=== PATIENT | female | born 1995 | race Caucasian/White ===

== ENCOUNTER 2018-06-15 12:48 | Emergency (ER) | payer OTHER ==
[~2018-06-15] VITALS: Ht 167.6 cm; Wt 86.9 kg
[2018-06-15 12:51] VITALS: BP 103/64; PULSE 98; TEMP 36.7; O2SAT 98; Ht 167.6 cm; Wt 86.9 kg
[2018-06-15] MEDS ORDERED: IBUPROFEN 600 MG TAB PO STA (13:16)
--- NOTE | 2018-06-15 17:43 | EMERGENCY ROOM VISIT NOTE ---
ED Visit Note First contact with patient: 13:02 CHIEF COMPLAINT: Left shoulder injury HISTORY OF PRESENT ILLNESS: This 22-year-old white female patient complains of pain in her left shoulder that developed last night. 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 She was setting up a [employer] ride last night. By the end of the night her shoulder began hurting. It persisted into today. She reports here for evaluation. No prior history of left shoulder pain. No direct trauma. Pain is global. It is affecting her motion. Right-hand dominant. No numbness or tingling. The pain is moderate, constant and increases with motion of the arm. She denies any elbow or wrist pain. No treatment. REVIEW OF SYSTEM: HEENT: No dizziness, visual problems, hearing loss, or tinnitus. There is no difficulty swallowing and no oral lesions are present. PULMONARY: No cough, shortness of breath, sputum production or hemoptysis. CARDIOVASCULAR: No chest pain, palpitations, shortness of breath or peripheral edema. GASTROINTESTINAL: No diarrhea, constipation, nausea, vomiting, or abdominal pain. GENITOURINARY: No dysuria, frequency, urgency or nocturia. NEUROLOGIC: No weakness, muscle tenderness, epilepsy or history of neurological problems. MUSCULOSKELETAL: No history of joint tenderness/swelling. No history of arthritis or arthralgias. SKIN: No rashes or lesions. PSYCHIATRIC: No history of depression or mental illness. ENDOCRINE: No history of diabetes, thyroid disorders, or abnormal hair growth. PMH: The patient is healthy; there is no significant medical or surgical history. Family history: Noncontributory. SOCIAL HISTORY: Patient lives at home. Non-smoker, no excessive alcohol use. Allergies: NKDA Current medications: None PHYSICAL EXAM: Vital Signs: Reviewed nurse's notes. Afebrile. General: Well-developed, well-nourished, young white female, in no acute distress. Obvious discomfort. Sitting on a bed. Alert and oriented. Skin: Warm and dry with good turgor. No rashes or lesions. No ecchymosis or erythema. The patient is not diaphoretic. No abrasions. Musculoskeletal: The left shoulder is not swollen or deformed on inspection. The range of motion is limited in all directions because of the pain. Forward flexion of around 130 degrees, abduction of 110 degrees, but in the back reach to high lumbar, external rotation of around 30 degrees. There is no tenderness of the distal clavicle. Global discomfort with palpation over the subacromial space and posterior rotator cuff musculature. No pain with palpation over her biceps muscle belly or proximal tendon. Full range of motion of her elbow and wrist without discomfort. She has pain associated with Yarbrough testing, Neer impingement testing, and supraspinatus testing. No appreciable weakness. No pain with palpation over her cervical or thoracic spine. Neurologic: Gross sensation is intact across the left arm by soft touch. Peripheral pulses are 2+. DIAGNOSIS: Left shoulder rotator cuff tendinitis DISCHARGE INSTRUCTIONS & TREATMENT: Patient was educated regarding today's findings. Conservative care measures were discussed. Rest the arm in a sling until the pain subsides. Apply ice to the shoulder intermittently and frequently over the next 72 hours. Tylenol and Motrin every 6 hours if needed for pain. First dose of Motrin 600 mg was provided in the ED. gentle stretching daily. Avoid any heavy lifting. See your own doctor or an orthopedic surgeon for physical therapy referral if she does not seem to be improving in 4 - 5 days. Note was provided to be off work if they cannot provide modified duty in the sling. She was reassured that I do not suspect rotator cuff rupture or tear, fracture, or dislocation. Vital Signs Date Time Temp Pulse Resp B/P (MAP) Pulse Ox O2 Delivery O2 Flow Rate FiO2 06/15/18 12:51 36.7 98 18 103/64 98 Room Air Medications Administered Medications (Trade) Dose Ordered Sig/Homar Route Start Time Stop Time Status Last Admin Dose Admin Ibuprofen (Motrin Tab) 600 mg NOW STAT PO 06/15/18 13:16 06/15/18 13:20 DC 06/15/18 13:33 600 MG Departure Information Impression Primary Impression: Tendinitis of left rotator cuff Dispostion Home / Self-Care Condition GOOD Referrals No Doctor, Assigned (PCP) Forms HOME CARE DOCUMENTATION FORM, MOTRIN USE, TYLENOL USE, IMPORTANT VISIT INFORMATION Patient Instructions Rotator Cuff Injury, My Apropose Additional Instructions Apply ice to the shoulder 4-5 times per day Use the sling as needed for comfort Avoid any heavy lifting or repetitive motion of the shoulder Follow-up with your PCP for a physical therapy referral Ibuprofen 600 mg and Tylenol 650 mg every 6 hours with food, until pain resolves Gentle stretching daily You may work if they will let you use your sling. Otherwise, no work until cleared by your PCP
== END 2018-06-15 14:00 | disposition home or self-care (01) ==
LOC: C.EDB 12:50 → C.EDD 14:00
DX: M75.82 Other shoulder lesions, left shoulder (principal)